=== PATIENT | female | born 1985 | race Hispanic/Latino ===

== ENCOUNTER 2021-08-18 09:21 | Inpatient (IN) | payer MEDICAID ==
[~2021-08-18] VITALS: Ht 157.5 cm; Wt 86.2 kg
[2021-08-24] MEDS ORDERED: CITRIC ACID/SODIUM CITRATE 30 ML UDCUP PO PRN (06:00)
[2021-08-24] MEDS ORDERED: LACTATED RINGERS 1000ML 1,000 ML IV SCH (06:00)
[2021-08-24] MEDS ORDERED: CEFAZOLIN SODIUM 1 GM VIAL IVP PRN (06:00)
[2021-08-24 06:04] VITALS: BP 120/68
[2021-08-24] MEDS ORDERED: CALC420T7 PO (06:08)
[2021-08-24] MEDS ORDERED: PREN1TAB80 PO (06:08)
[2021-08-24 07:06] LABS: MEAN CORPUSCULAR HEMOGLOBIN 25.1 pg (27.0-33.0); MEAN CORPUSCULAR HGB CONC 31.8 g/dL (32.0-36.0); MEAN CORPUSCULAR VOLUME 78.9 fL (79-99); RED BLOOD CELL COUNT(AUTO) 4.18 MIL/uL (4.00-5.50); RED CELL DISTRIBUTION WIDTH 14.9 % (11.0-15.5); WHITE BLOOD COUNT (AUTO) 7.8 K/uL (4.8-10.8)
[2021-08-24] MEDS ORDERED: NPH,100V SQ (07:15)
[2021-08-24] MEDS ORDERED: OXYTOCIN-LR 20 UNITS/1000 ML 2,000 ML IV ONE (07:16)
[2021-08-24] MEDS ORDERED: OXYTOCIN 10 UNIT/1ML 10ML VIAL ONE (07:53)
[2021-08-24] MEDS ORDERED: ONDANSETRON 4MG INJ ONE (07:54)
[2021-08-24] MEDS ORDERED: DEXAMETHASONE SOD PHOSPHATE 10MG/ML 1ML VIAL ONE (07:54)
[2021-08-24] MEDS ORDERED: PHENYLEPHRINE HCL 10 MG/ML 1ML VIAL IV ONE (07:54)
[2021-08-24] MEDS ORDERED: MORPHINE PF 100MG/10ML AMP IV ONE (07:55)
[2021-08-24] MEDS ORDERED: EPHEDRINE SULFATE 50 MG/ML AMPULE ONE (07:55)
[2021-08-24 08:07] LABS: APPEARANCE,URINE Cloudy (CLEAR); BILIRUBIN,URINE Negative (NEGATIVE); COLOR,URINE Yellow (YELLOW); GLUCOSE, URINE (UA) Negative (NEGATIVE); KETONES,URINE Negative (NEGATIVE); LEUKOCYTE ESTERASE ,URINE Trace (NEGATIVE); NITRATE,URINE Negative (NEGATIVE); OCCULT BLOOD,URINE Negative (NEGATIVE); PROTEIN,URINE POS 1+ mg/dL (NEGATIVE)
[2021-08-24 08:44] LABS: BACTERIA,URINE Moderate /HPF (None Seen); RBC,URINE 0-1 /HPF (0-1); SQUAMOUS EPITHELIAL CELL,UR Few /HPF (0-2)
[2021-08-24] MEDS ORDERED: OXYTOCIN-LR 20 UNITS/1000 ML 1,000 ML IV PRN (09:30)
[2021-08-24] MEDS ORDERED: MEPERIDINE-PF 75 MG/ML SYG IM PRN (09:30)
[2021-08-24] MEDS ORDERED: DiphenhydrAMINE HCL 50 MG/ML VIAL IVP PRN (09:30)
[2021-08-24] MEDS ORDERED: EPHEDRINE SULFATE 50 MG/ML AMPULE IVP PRN (09:30)
[2021-08-24] MEDS ORDERED: NALOXONE HCL 0.4 MG/1 ML ML IVP PRN (09:30)
[2021-08-24] MEDS ORDERED: PROMETHAZINE HCL 25 MG/ML 1ML AMPULE IM PRN (09:30)
[2021-08-24] MEDS ORDERED: ONDANSETRON 4MG INJ IVP PRN (09:30)
[2021-08-24] MEDS ORDERED: 0.9%NACL 10ML VIAL IVP PRN (09:30)
[2021-08-24 11:25] VITALS: BP 124/65
[2021-08-24] MEDS: INSULIN HUMULIN R 100 UNIT/ML 3ML SQ SCH ×3 (11:30→21:00)
[2021-08-24] MEDS: DEXTROSE 5 %-0.45 % NACL 1,000 ML IV PRN ×2 (14:52→21:37)
[2021-08-24 16:34] VITALS: BP 114/62
[2021-08-24] MEDS: METOCLOPRAMIDE 10 MG/2 ML VIAL IVP SCH (17:48)
[2021-08-24 19:41] VITALS: BP 111/59
[2021-08-24 23:54] VITALS: BP 106/61
[2021-08-25] MEDS: METOCLOPRAMIDE 10 MG/2 ML VIAL IVP SCH ×4 (01:53→20:11)
[2021-08-25] MEDS: DEXTROSE 5 %-0.45 % NACL 1,000 ML IV PRN (03:58)
[2021-08-25 05:14] VITALS: BP 111/58
[2021-08-25 06:12] LABS: HEPATITIS Bs ANTIGEN SCREEN P Negative (Negative)
[2021-08-25 06:57] LABS: HEMATOCRIT 29.4 % (36-48); MEAN CORPUSCULAR HEMOGLOBIN 24.7 pg (27.0-33.0); MEAN CORPUSCULAR HGB CONC 31.3 g/dL (32.0-36.0); MEAN CORPUSCULAR VOLUME 78.8 fL (79-99); PLATELET COUNT (AUTO) 175 K/uL (130-400); RED BLOOD CELL COUNT(AUTO) 3.73 MIL/uL (4.00-5.50); RED CELL DISTRIBUTION WIDTH 15.1 % (11.0-15.5); WHITE BLOOD COUNT (AUTO) 10.6 K/uL (4.8-10.8)
[2021-08-25] MEDS: DIPH,PERTUSS(ACELL),TET VAC/PF 0.5 ML VIAL IM SCH (07:09)
[2021-08-25] MEDS: MEASLES/MUMPS/RUBELLA VACCINE, LIVE 0.5 ML/VIAL SQ SCH (07:10)
[2021-08-25] MEDS: INSULIN HUMULIN R 100 UNIT/ML 3ML SQ SCH ×4 (07:30→21:00)
[2021-08-25 07:34] VITALS: BP 100/55
[2021-08-25] MEDS ORDERED: IBUPROFEN 600 MG TABLET PO PRN (08:30)
[2021-08-25] MEDS ORDERED: HYDROCODONE/ACETAMINOPHEN 5/325 MG TAB PO PRN (08:30)
[2021-08-25] MEDS ORDERED: ACETAMINOPHEN 500 MG TABLET PO PRN (08:30)
[2021-08-25] MEDS ORDERED: ACETAMINOPHEN WITH CODEINE 1 TAB TAB PO PRN (08:30)
[2021-08-25] MEDS ORDERED: BISACODYL 10 MG SUPP.RECT RC PRN (08:30)
[2021-08-25] MEDS ORDERED: LANOLIN 30GM OINTMENT TP PRN (08:30)
[2021-08-25] MEDS: SIMETHICONE 80 MG TAB.CHEW PO PRN ×2 (08:57→20:42)
[2021-08-25] MEDS: DOCUSATE SODIUM 100 MG CAP PO SCH ×2 (08:57→20:42)
[2021-08-25] MEDS: IBUPROFEN 800 MG TAB PO SCH ×2 (10:13→17:35)
[2021-08-25 11:32] VITALS: BP 93/43
[2021-08-25 16:13] VITALS: BP 103/60
[2021-08-25 19:10] VITALS: BP 115/73
[2021-08-25 23:02] VITALS: BP 114/72
[2021-08-26] MEDS: IBUPROFEN 800 MG TAB PO SCH ×2 (01:31→09:30)
[2021-08-26 03:34] VITALS: BP 105/71
[2021-08-26] MEDS: DIPH,PERTUSS(ACELL),TET VAC/PF 0.5 ML VIAL IM SCH (04:38)
[2021-08-26] MEDS: MEASLES/MUMPS/RUBELLA VACCINE, LIVE 0.5 ML/VIAL SQ SCH (04:40)
[2021-08-26] MEDS: INSULIN HUMULIN R 100 UNIT/ML 3ML SQ SCH (07:02)
[2021-08-26 07:05] VITALS: BP 101/63
[2021-08-26] MEDS: SIMETHICONE 80 MG TAB.CHEW PO PRN (09:30)
[2021-08-26] MEDS: METOCLOPRAMIDE 10 MG/2 ML VIAL IVP SCH (09:30)
[2021-08-26] MEDS: DOCUSATE SODIUM 100 MG CAP PO SCH (09:30)
== END 2021-08-26 11:30 | disposition home or self-care (01) | DRG 540 ==
LOC: LDH 08-24 05:53 → WSH 08-24 11:15
PROVIDERS: ADMIT Specialist; ATTEND Specialist
PROC: 10D00Z1 Extraction of Products of Conception, Low, Open Approach (ICD-10-PCS; principal; 2021-08-24)
PROC: 0UB70ZZ Excision of Bilateral Fallopian Tubes, Open Approach (ICD-10-PCS; 2021-08-24)
DX: O34.211 Maternal care for low transverse scar from previous cesarean delivery (principal); O24.424 Gestational diabetes mellitus in childbirth, insulin controlled; Z37.0 Single live birth; Z3A.38 38 weeks gestation of pregnancy; Z20.822 Contact with and (suspected) exposure to COVID-19; Z30.2 Encounter for sterilization; Z83.3 Family history of diabetes mellitus; Z82.49 Family history of ischemic heart disease and other diseases of the circulatory system
CPT/HCPCS: 36415; 59510; 81001; 82948; 85027; 86592; 86850; 86900; 86901; 87088; 87340; 87635; 90707; 90715; A4344; G0378; J0690; J1100; J2175; J2274; J2370; J2405; J2550; J2590; J2765; J3490; J7120